=== PATIENT | male | born 1980 | race Caucasian/White ===

== ENCOUNTER 2018-07-08 10:01 | Emergency (ER) | payer MEDICAID ==
[~2018-07-08] VITALS: Ht 180.3 cm; Wt 80.4 kg
[~2018-07-08 10:01] MED LIST: NO HOME MEDICATIONS
[2018-07-08 10:04] VITALS: BP 136/96; TEMP 98
[2018-07-08] MEDS ORDERED: TEGRETOL 2200 MG/TA1 PO (10:10)
[2018-07-08] MEDS ORDERED: CEPHALEXIN500 M1 PO (10:57)
[2018-07-08] MEDS ORDERED: DOXYCYCLINE HY100 MG PO (10:57)
[2018-07-08] MEDS ORDERED: NORCO 325 MG-51 TAB PO (11:06)
[2018-07-08 11:09] VITALS: PULSE 120
== END 2018-07-08 11:09 | disposition home or self-care (01) ==
LOC: COL.ER 10:01
DX: K13.0 Diseases of lips (principal); F41.9 Anxiety disorder, unspecified; F12.90 Cannabis use, unspecified, uncomplicated; F17.210 Nicotine dependence, cigarettes, uncomplicated; Z88.5 Allergy status to narcotic agent

== ENCOUNTER 2019-06-11 04:00 | Emergency (ER) | payer MEDICAID ==
[~2019-06-11] VITALS: Ht 180.3 cm; Wt 75.0 kg
[~2019-06-11 04:00] MED LIST changes: +CEPHALEXIN500 M1 PO; +DOXYCYCLINE HY100 MG PO; +NORCO 325 MG-51 TAB PO; +TEGRETOL 2200 MG/TA1 PO
[2019-06-11 04:09] VITALS: BP 167/97; PULSE 123; TEMP 98.2
[2019-06-11] MEDS ORDERED: CATAPRES0.2 MG PO (04:13)
== END 2019-06-11 05:10 | disposition left against medical advice (07) ==
LOC: COL.ER 04:00
DX: F19.10 Other psychoactive substance abuse, uncomplicated (principal); F17.210 Nicotine dependence, cigarettes, uncomplicated

== ENCOUNTER 2019-06-11 08:40 | Emergency (ER) | payer MEDICAID ==
[~2019-06-11] VITALS: Ht 177.8 cm; Wt 68.7 kg
[~2019-06-11 08:40] MED LIST changes: +CATAPRES0.2 MG PO
[2019-06-11 08:48] VITALS: BP 132/96; PULSE 113; TEMP 98.6
== END 2019-06-11 09:10 | disposition left against medical advice (07) ==
LOC: COL.ER 08:40
DX: F22 Delusional disorders (principal)

== ENCOUNTER 2019-06-13 16:41 | Emergency (ER) | payer MEDICAID ==
[~2019-06-13] VITALS: Ht 177.8 cm; Wt 71.8 kg
[2019-06-13 16:56] VITALS: TEMP 97.3
[2019-06-13] MEDS ORDERED: SEROQUEL50 MG PO (17:32)
[2019-06-13] MEDS ORDERED: COGENTIN 1MG1 MG/TAB (17:32)
[2019-06-13 17:48] LABS: COLLECTION METHOD CLEAN CATCH
[2019-06-13 17:58] LABS: PH 6 (5-8); SQUAMOUS EPITHELIAL None Seen /hpf; URINE APPEARANCE Clear; URINE BACTERIA None Seen /hpf; URINE BILIRUBIN Negative (NEGATIVE); URINE BLOOD Negative (NEGATIVE); URINE COLOR Yellow; URINE GLUCOSE Negative (NEGATIVE); URINE KETONE Negative (NEGATIVE); URINE LEUKOCYTE ESTERASE Negative (NEGATIVE); URINE NITRATE Negative (NEGATIVE); URINE PROTEIN(semi-quant) Negative (NEGATIVE); URINE RBC None Seen /hpf; URINE UROBILINOGEN Negative (NEGATIVE)
[2019-06-13 18:00] LABS: BASO % 0.3 % (0.0-2.0); EOS # 0.2 (0.0-0.7); EOS % 1.8 % (0-4.0); GRAN # 5.3 (1.4-6.5); GRAN % 59.6 % (42.2-75.2); HEMATOCRIT 40.1 % (42.0-52.0); HEMOGLOBIN 13.5 g/dl (13.5-18.0); LYMPH # 2.8 (1.2-3.4); LYMPH % 30.8 % (20.0-51.0); MEAN CELL VOLUME 87 fl (80.0-100.0); MEAN CORPUSCULAR HEMOGLOBIN 29 pg (27.0-31.0); MEAN CORPUSCULAR HGB CONC 34 g/dl (33.0-37.0); MEAN PLATELET VOLUME 11.3 fl (7.4-10.4); MONO # 0.7 (0.1-0.6); MONO % 7.4 % (1.7-9.3); PLATELET COUNT 182 K/mm3 (130-400); RED BLOOD COUNT 4.61 M/mm3 (4.20-5.60); REDCELL DISTRIBUTION WIDTH-CV 13.4 % (11.5-14.5)
[2019-06-13 18:10] LABS: ALANINE AMINOTRANSFERASE 29 U/L (21-72); ALBUMIN 4.1 gm/dL (3.5-5.0); ALKALINE PHOSPHATASE 62 U/L (50-136); ANION GAP 11 mmol/L (7-16); AST,SGOT 45 U/L (15-37); BILIRUBIN,TOTAL 0.6 mg/dL (0.0-1.0); BLOOD UREA NITROGEN 11 mg/dL (9-20); CALCIUM 9.2 mg/dL (8.4-10.2); CARBON DIOXIDE 25 mmol/L (22-30); CHLORIDE 103 mmol/L (98-107); CREATININE, serum 0.77 (0.66-1.25); GLUCOSE 121 mg/dL (74-106); POTASSIUM 3.8 mmol/L (3.4-5.0); SODIUM 138 mmol/L (137-145); TOTAL PROTEIN 7.5 gm/dL (6.4-8.2)
[2019-06-13 18:11] LABS: TRICYCLIC ANTIDEPRESS URINE NEGATIVE
[2019-06-13 18:24] LABS: ACETAMINOPHEN < 10 ug/mL (10-30); SALICYLATE < 1.0 mg/dL
[2019-06-13 18:46] LABS: ALCOHOL(ethanol),MEDICAL < 10 mg/dL
[2019-06-13 22:43] VITALS: BP 123/78; PULSE 79
== END 2019-06-13 22:43 | disposition home or self-care (01) ==
LOC: COL.ER 16:41
PROVIDERS: Emergency Medicine
DX: F22 Delusional disorders (principal); R53.83 Other fatigue; F20.9 Schizophrenia, unspecified; Z59.0 Homelessness
CPT/HCPCS: J7030

== ENCOUNTER 2019-06-13 23:46 | Emergency (ER) | payer MEDICAID ==
[~2019-06-13] VITALS: Ht 180.3 cm; Wt 70.0 kg
[~2019-06-13 23:46] MED LIST changes: +COGENTIN 1MG1 MG/TAB; +SEROQUEL50 MG PO
[2019-06-14 03:39] LABS: ACETAMINOPHEN < 10 ug/mL (10-30); ALCOHOL(ethanol),MEDICAL < 10 mg/dL; SALICYLATE < 1.0 mg/dL
[2019-06-14 11:50] VITALS: BP 132/94; PULSE 79; TEMP 97.9
== END 2019-06-14 11:50 | disposition home or self-care (01) ==
LOC: COL.ER 23:46
PROVIDERS: Emergency Medicine
DX: R45.851 Suicidal ideations (principal)
CPT/HCPCS: J2060

== ENCOUNTER 2019-06-15 16:04 | Emergency (ER) | payer MEDICAID ==
[~2019-06-15] VITALS: Ht 180.3 cm; Wt 71.8 kg
[2019-06-16 17:59] VITALS: BP 121/81; PULSE 100; TEMP 97.7
== END 2019-06-17 06:30 ==
LOC: COL.ER 16:04
DX: F15.10 Other stimulant abuse, uncomplicated (principal); F29 Unspecified psychosis not due to a substance or known physiological condition
CPT/HCPCS: J1200; J2060

== ENCOUNTER 2019-06-26 03:02 | Emergency (ER) | payer MEDICAID ==
[~2019-06-26] VITALS: Ht 180.3 cm; Wt 75.0 kg
[2019-06-26 03:04] VITALS: BP 146/108; TEMP 97.6
[2019-06-26 05:39] VITALS: PULSE 122
== END 2019-06-26 05:40 | disposition home or self-care (01) ==
LOC: COL.ER 03:02
DX: S60.410A Abrasion of right index finger, initial encounter (principal); S60.412A Abrasion of right middle finger, initial encounter; S60.221A Contusion of right hand, initial encounter; F15.150 Other stimulant abuse with stimulant-induced psychotic disorder with delusions; F19.10 Other psychoactive substance abuse, uncomplicated; Z23 Encounter for immunization; Y04.8XXA Assault by other bodily force, initial encounter; Y92.89 Other specified places as the place of occurrence of the external cause

== ENCOUNTER 2019-06-28 13:38 | Emergency (ER) | payer MEDICAID ==
[~2019-06-28] VITALS: Ht 180.3 cm; Wt 68.2 kg
[2019-06-28 14:04] VITALS: BP 130/89; PULSE 93; TEMP 99.1
== END 2019-06-28 14:15 | disposition left against medical advice (07) ==
LOC: COL.ER 13:38
DX: F15.10 Other stimulant abuse, uncomplicated (principal)

== ENCOUNTER 2022-09-09 20:11 | Emergency (ER) | payer SELFPAY ==
[~2022-09-09 20:11] MED LIST changes: +ATHLETE'S FOOT1% TP; +DOXYCYCLINE 10100 MG PO; +SEROQUEL 1100 MG/TAB PO
[2022-09-09 20:19] VITALS: TEMP 98.7
[2022-09-09 20:33] LABS: COLLECTION METHOD CLEAN CATCH
[2022-09-09 20:38] LABS: MUCOUS Present (NOT PRESENT); SQUAMOUS EPITHELIAL None Seen /hpf (0-10); URINE BACTERIA None Seen /hpf (NONE SEEN); URINE RBC 0-2 /hpf (0-2)
[2022-09-09 20:40] LABS: PH 5.5 (5.0-8.5); URINE APPEARANCE Clear (CLEAR/HAZY); URINE BLOOD Negative (NEGATIVE); URINE COLOR Amber (YELLOW); URINE GLUCOSE Negative (NEGATIVE); URINE KETONE Negative (NEGATIVE); URINE NITRATE Negative (NEGATIVE); URINE PROTEIN(semi-quant) 1+ (NEGATIVE); URINE UROBILINOGEN 0.2 E.U/dL (0.2-1.0)
[2022-09-09 20:45] LABS: TRICYCLIC ANTIDEPRESS URINE NEGATIVE
[2022-09-09 20:48] LABS: BASO % 0.2 % (0.0-2.0); EOS # 0.1 K/mm3 (0.0-0.7); EOS % 0.5 % (0.0-4.0); GRAN # 7.6 K/mm3 (1.4-6.5); GRAN % 68.7 % (42.2-75.2); HEMOGLOBIN 13.2 g/dl (13.5-18.0); LYMPH # 2.4 K/mm3 (1.2-3.4); LYMPH % 21.7 % (20.0-51.0); MEAN CELL VOLUME 85 fl (80.0-100.0); MEAN CORPUSCULAR HEMOGLOBIN 31 pg (27-31); MEAN CORPUSCULAR HGB CONC 36 g/dl (33.0-37.0); MEAN PLATELET VOLUME 10.9 fl (7.4-10.4); MONO % 8.7 % (1.7-9.3); PLATELET COUNT 157 K/mm3 (130-400); RED BLOOD COUNT 4.32 M/mm3 (4.20-5.60); REDCELL DISTRIBUTION WIDTH-CV 12.9 % (11.5-14.5)
[2022-09-09 20:49] LABS: HEMATOCRIT 36.7 % (42.0-52.0)
[2022-09-09 21:04] LABS: ALANINE AMINOTRANSFERASE 79 U/L (0-55); ALBUMIN 3.8 gm/dL (3.5-5.0); ALKALINE PHOSPHATASE 54 U/L (40-150); ANION GAP 12 mmol/L (7-16); AST,SGOT 162 U/L (5-34); BILIRUBIN,TOTAL 0.6 mg/dL (0.2-1.2); BLOOD UREA NITROGEN 22 mg/dL (9-21); CALCIUM 8.7 mg/dL (8.4-10.2); CARBON DIOXIDE 23 mmol/L (22-29); CHLORIDE 108 mmol/L (98-107); GLUCOSE 100 mg/dL (70-99); POTASSIUM 3.6 mmol/L (3.5-4.5); SODIUM 143 mmol/L (136-145)
[2022-09-09 21:07] LABS: ACETAMINOPHEN < 1.0 ug/mL (10-30); ALCOHOL(ethanol),MEDICAL < 10 mg/dL (0-10); SALICYLATE < 5.0 mg/dL (15.0-30.0)
[2022-09-09 22:30] VITALS: BP 144/98; PULSE 91
== END 2022-09-10 00:59 | disposition left against medical advice (07) ==
LOC: COL.ER 20:11
PROVIDERS: Emergency Medicine
DX: R45.851 Suicidal ideations (principal); R79.89 Other specified abnormal findings of blood chemistry; B35.6 Tinea cruris; Z20.822 Contact with and (suspected) exposure to COVID-19; Z28.310 Unvaccinated for COVID-19